=== PATIENT | male | born 1960 | race Caucasian/White ===

== ENCOUNTER 2019-12-19 10:50 | Inpatient (IN) | payer MEDICARE, MEDICAID, SELFPAY ==
[2019-12-19] VITALS (18 sets, daily range): BP systolic 97–125; BP diastolic 58–78; PULSE 84–102; RESP 17–43; TEMP 36.1–36.9; O2SAT 94–100; BMI 24.3
--- NOTE | 2019-12-19 10:52 | ED_ITS ---
Entered by Shawanda Cunningham, acting as scribe for Xavi Pedroza DO HPI - SOB/Dyspnea General: Chief Complaint: Shortness of Breath/Dyspnea Stated Complaint: SHORTNESS OF BREATH Time Seen by Provider: 12/19/19 10:52 Source: patient, family and EMS Mode of arrival: EMS Limitations: no limitations History of Present Illness: HPI Narrative: 59 yo male presents with cough and increased shortness of breath. pt states this started several days ago. pt has had dark stools, nausea, vomiting and abdomen pain. per spouse the pt was Dx with lung cancer 6 months ago. pt is scheduled to see Dr. Dunham on January 08 to started a plan on the cancer. pt has had decreased appetite. pt denies any other symptoms at this time. pt did increased his intake of ibuprofen. MD elicited complaint: shortness of breath and cough Onset (ago): day(s) (yesterday) Context: other (fall 1 month ago) Timing: constant and progressively worsening Severity: moderate Exacerbating factors: coughing Relieving factors: oxygen Associated symptoms: Reports abdominal pain, cough, nausea, vomiting and other (diarrhea, black stools); Deny chest pain, dizziness, extremity pain, fever(s), palpitations, polydipsia, polyuria or syncope Treatment prior to arrival: oxygen Review of Systems Const: Denies: fever, malaise or night sweats Eyes: Denies: change in vision or blurry vision ENMT: Denies: throat pain, oral sores/lesions, dental pain, nasal discharge or nasal congestion Card: Denies: chest pain, palpitations, irregular heart rhythm, edema, syncope or leg pain with exertion GI: Reports: abdominal pain, nausea and vomiting : Denies: flank pain, difficulty urinating, painful urination, urinary frequency, urinary urgency, urinary incontinence or blood in urine Musc: Denies: neck pain, back pain, extremity pain, extremity swelling, joint pain or joint swelling Skin/Breast: Denies: rash, itching or redness Neuro: Denies: headache, numbness in extremities, weakness in extremities, changes in sensation, lack of coordination, difficulty walking, frequent falls, dizziness, vertigo or confusion Psych: Denies: anxiety, depression, loss of interest, visual hallucinations, auditory hallucinations, suicidal ideation or homicidal ideation Endo: Denies: excessive urination, excessive thirst, tired all the time or cold intolerance Chance/Lymph: Denies: easy bruising, easy bleeding, petechiae, enlarged lymph nodes or tender lymph nodes PFSH ED PFSH: Statuses (acute, chronic, etc) shown below reflect problem list status as previously entered and may not be historically accurate Medical History COPD (chronic obstructive pulmonary disease) Lung cancer Family History Grandmother Diabetes Mother Hypertension Lung disease Social History Smoking and tobacco status: current every day smoker cigarettes Packs smoked per day: 1 Years cigarettes smoked: 40 Alcohol intake: current Alcohol intake frequency: 3 or more drinks per day Lives independently: Yes Marital status: Single Highest education level completed: High School Graduate service: Yes Current occupational status: disabled Current gender identity: Male Physical Exam Const: COMMON NORMALS: average body habitus, oriented x3 and alert GENERAL APPEARANCE: cooperative, comfortable, well kempt and well developed NUTRITIONAL APPEARANCE: obese ORIENTATION/CONSCIOUSNESS: Yes awake, Yes oriented to person and Yes oriented to place HENMT: COMMON NORMALS: normocephalic, head/scalp atraumatic, EAC's normal, TM's normal bilaterally, external nose normal, moist oral mucous membranes and oropharynx normal HEAD & SCALP: normocephalic and atraumatic NOSE: external nose normal EXTERNAL AUDITORY CANAL: EAC's normal TYMPANIC MEMBRANE: TM's normal bilaterally MOUTH: oral and palatal mucosa normal, lip normal and tongue normal THROAT: posterior oropharynx normal and tonsils normal Eye: COMMON NORMALS: PERRL, EOMs intact bilaterally, conjunctivae normal and no scleral icterus CONJUNCTIVA: Yes conjunctivae normal PUPIL: Yes PERRL Neck/C-Spine: COMMON NORMALS: full ROM, no lymphadenopathy, supple, no meningeal signs and thyroid normal THYROID: thyroid normal and asymmetrical Lymph: LYMPHATIC: no lymphadenopathy noted Resp: EFFORT & INSPECTION: Yes audible wheezes AUSCULTATION: rhonchi left upper, left lower and right lower and wheezes throughout Cardio: COMMON NORMALS: regular rate and regular rhythm RATE: regular rate RHYTHM: regular rhythm HEART SOUNDS: no murmurs : COMMON NORMALS: Yes no CVA tenderness BLADDER/KIDNEY EXAM: Yes no CVA tenderness Back/Pelvis: COMMON NORMALS: no CVA tenderness LUMBAR SPINE/LOWER BACK: Yes normal to inspection Extremity: COMMON NORMALS: no clubbing, cyanosis or edema, no calf tenderness and no pedal edema Neuro: COMMON NORMALS: oriented x3 SENSORIUM/ORIENTATION: Yes alert, Yes oriented to person and Yes oriented to place MENINGEAL SIGNS: Yes no meningeal signs Psych: APPEARANCE: Yes well kempt Skin: COMMON NORMALS: no rashes or lesions noted and skin turgor normal GENERAL SKIN EXAM: no rashes or lesions noted and turgor normal Course Vital Signs: Vital signs: Vital Signs Temperature 97.3 F L 12/20/19 23:58 Pulse Rate 100 12/21/19 16:45 Respiratory Rate 31 H 12/21/19 14:11 Blood Pressure 145/67 12/21/19 12:00 Pulse Oximetry 98 12/21/19 16:45 MDM - SOB/Dyspnea Lab Data: Labs: Lab Results 12/19/19 12/19/19 12/19/19 Range/Units 09:39 09:39 09:39 WBC 11.9 H (4.0-10.0) 10^3/ uL RBC 3.14 L (4.1-5.3) 10^6/u L Hgb 10.0 L (11.7-16.6) g/dL Hct 29.2 L (42.0-52.0) % MCV 93.0 (80-94) fL MCH 31.8 (28.0-34.0) pg MCHC 34.2 (30.0-36.0) g/dL RDW 10.8 L (12.1-15.1) % Plt Count 564 H (130-400) 10^3/c mm MPV 10.0 (7.4-10.4) fL Neut % (Auto) 76.8 % Lymph % (Auto) 10.3 % [facility] % (Auto) 12.1 % Eos % (Auto) 0.2 % Baso % (Auto) 0.2 % Neut # (Auto) 9.1 H (1.8-7.7) 10^3/u L Lymph # (Auto) 1.2 (0.8-4.8) 10^3/u L [facility] # (Auto) 1.4 H (0.2-0.9) 10^3/u L Eos # (Auto) 0.0 (0.0-0.8) 10^3/u L Baso # (Auto) 0.0 (0.0-0.1) 10^3/u L Nucleated RBC % (a uto) 0 % Nucleated RBCs # 0.0 /100WBC PT (10.5-13.3) SECO NDS INR (0.8-1.2) APTT (23.9-36.7) SECO NDS Sodium 134 L (136-145) mmol/L Potassium 4.2 (3.5-5.1) mmol/L Chloride 80 L (98-107) mmol/L Carbon Dioxide 39 H (22-29) mmol/L Anion Gap 19.2 H (5-19) BUN 30 H (8-23) mg/dL Creatinine 0.7 (0.7-1.2) mg/dL GFR Calculation 115.0 (90-130) mL/min Glucose 133 H (65-115) mg/dL Calcium 11.6 H (8.5-10.5) mg/dL Total Bilirubin 0.3 (0.15-1.2) mg/dL AST 27 (0-40) U/L ALT 14 (0-41) U/L Alkaline Phosphata se 156 H (40-130) IU/L Troponin T Baselin e 21 H (0-15) ng/mL Troponin T 120 Min [place] (0-15) ng/mL Delta Troponin T (0-10) ABS# Total Protein 7.8 (6.6-8.7) g/dL Albumin 4.8 (3.5-5.2) g/dL Globulin 3.0 (1.3-4.6) g/dL Influenza Type A A g (Negative) POC Influenza B Ag (Negative) 12/19/19 12/19/19 12/19/19 Range/Units 09:39 12:20 13:08 WBC (4.0-10.0) 10^3/ uL RBC (4.1-5.3) 10^6/u L Hgb (11.7-16.6) g/dL Hct (42.0-52.0) % MCV (80-94) fL MCH (28.0-34.0) pg MCHC (30.0-36.0) g/dL RDW (12.1-15.1) % Plt Count (130-400) 10^3/c mm MPV (7.4-10.4) fL Neut % (Auto) % Lymph % (Auto) % [facility] % (Auto) % Eos % (Auto) % Baso % (Auto) % Neut # (Auto) (1.8-7.7) 10^3/u L Lymph # (Auto) (0.8-4.8) 10^3/u L [facility] # (Auto) (0.2-0.9) 10^3/u L Eos # (Auto) (0.0-0.8) 10^3/u L Baso # (Auto) (0.0-0.1) 10^3/u L Nucleated RBC % (a uto) % Nucleated RBCs # /100WBC PT 13.60 H (10.5-13.3) SECO NDS INR 1.01 (0.8-1.2) APTT 28.1 (23.9-36.7) SECO NDS Sodium (136-145) mmol/L Potassium (3.5-5.1) mmol/L Chloride (98-107) mmol/L Carbon Dioxide (22-29) mmol/L Anion Gap (5-19) BUN (8-23) mg/dL Creatinine (0.7-1.2) mg/dL GFR Calculation (90-130) mL/min Glucose (65-115) mg/dL Calcium (8.5-10.5) mg/dL Total Bilirubin (0.15-1.2) mg/dL AST (0-40) U/L ALT (0-41) U/L Alkaline Phosphata se (40-130) IU/L Troponin T Baselin e (0-15) ng/mL Troponin T 120 Min [place] 25.81 H (0-15) ng/mL Delta Troponin T 4.81 (0-10) ABS# Total Protein (6.6-8.7) g/dL Albumin (3.5-5.2) g/dL Globulin (1.3-4.6) g/dL Influenza Type A A g Negative (Negative) POC Influenza B Ag Negative (Negative) Imaging Data^: CXR: Radiologist's impression: [address] [address] XRay Report Signed Patient: Reji Mcdaniel #: [id number] : 9Acct#:[id number] Age/Sex: 59 / MADM Date: 12/19/19 Loc: ERRoom/Bed: Attending Dr: Ordering Provider/Ordering MD: Xavi Pedroza DO Date of Service: 12/19/19 Procedure(s): XR chest 1V portable [id number] Accession Number(s): [id number] Report Number: [id number] WS: [id number] PORTABLE CHEST HISTORY: dyspnea/cough COMPARISON: 07/09/2017 and recent PET/CT 05/21/2019. Mild pulmonary hyperexpansion with changes of emphysema. Dense area of opacification in the LEFT upper lobe measures 6 x 4.8 cm. PET/CT from 05/21/2019 described an early neoplasm in this location. There is additional interstitial thickening extending into the superior LEFT lower lobe. RIGHT lung is clear. No pleural effusion or pneumothorax. Cardiac size: Normal. Mediastinum/Aorta: Normal mediastinum. No osseous abnormality seen. XR/XR chest 1V portable [id number] IMPRESSION: 1. Mixed opacification LEFT upper lobe with mild interstitial thickening into the superior LEFT lower lobe. Neoplasm has been described in this location on a prior PET/CT from 05/21/2019. No history of treatment is evident. Favor progression of neoplasm. Superimposed pneumonia not excluded. 2. Chronic emphysema. Dictated By:Farrah De León DO Signed By:Farrah De León DOSigned Date/Time:12/19/19 1147 Discharge Plan Discharge Patient Disposition: Admitted As Inpatient Admit Provider: Vick Owens Clinical Impression: Pneumonia, Lung cancer Condition: Stable Interventions: ED Discharge Assessment Last Done: 12/19/19 15:49 Discharge Date/Time: 12/19/19 17:00 Coding Level of Care Code ED Head Cook for Chg Fwd Exam Problem Focused The documentation recorded by the Octavio espinoza Bridget Annette, accurately reflects the service I personally performed and the decisions made by , Xavi Pedroza DO Dec 19, 2019 10:50
--- NOTE | 2019-12-19 10:54 | XR_ITS ---
WS: [id number] PORTABLE CHEST HISTORY: dyspnea/cough COMPARISON: 07/09/2017 and recent PET/CT 05/21/2019. Mild pulmonary hyperexpansion with changes of emphysema. Dense area of opacification in the LEFT uppe r lobe measures 6 x 4.8 cm. PET/CT from 05/21/2019 described an early neoplasm in this location. There is additional interstitial thickening extending into the superior LEFT lower lobe. RIGHT lung is king ar. No pleural effusion or pneumothorax. Cardiac size: Normal. Mediastinum/Aorta: Normal mediastinum. No osseous abnormality seen. XR/XR chest 1V portable [id number] IMPRESSION: 1. Mixed opacification LEFT upper lobe with mild interstitial thickening into the superior LEFT lower lobe. Neoplasm has been described in this location on a prior PET/CT from 05/21/2019. No history of treatment is evident. Favor progres rita of neoplasm. Superimposed pneumonia not excluded. 2. Chronic emphysema.
--- NOTE | 2019-12-19 10:55 | ECG_ITS ---
Measurements Intervals [place] Rate: 93 P: 85 TX: 185 QRS: 80 QRSD: 146 T: 55 QT: 382 QTc: 475 SINUS RHYTHM RIGHT BUNDLE BRANCH BLOCK [120+ ms QRS DURATION, UPRIGHT V1, 40+ ms S IN I/aVL/V4/V5/V6] Compared to ECG 07/08/2017 00:34:51 Q waves no longer present ST (T wave) deviation still present Myocardial infarct finding still present Electronically Signed On 12-19-2019 20:06:35 PARKING LINE PAINTER by Peter Bruno M.D. [id number]
--- NOTE | 2019-12-19 11:17 | CT_ITS ---
WS: [id number] CTA OF THE CHEST WITH PULMONARY EMBOLISM PROTOCOL TECHNIQUE: High-resolution contrast enhanced CTA of the chest with coronal and sagittal reformatted i mages with pulmonary embolism protocol. MIP images are also reviewed. CLINICAL INFORMATION: dyspnea, lung CA COMPARISON: PET/CT and CT chest DLP: 552.[address] scans at [facility] use at least one of these dose optimization techniques: automat ed exposure control; mA and/or kV adjustment per patient size (includes targeted exams where dose is matched to clinical indication); or iterative reconstruction. FINDINGS: Proximal main pulmonary arteries are normal. Segmental and subsegmental pulmonary arteries are normal . No filling defects to indicate pulmonary embolus. Spiculated left upper lobe pulmonary mass is progressed from the prior examinations consistent with b ronchogenic carcinoma measuring 1.7 x 1.2 CM. Additional parenchymal consolidation along the left fis sure with partial encasement of the left hilum. Surrounding micronodules suspicious for metastatic di sease. Additional contiguous spiculated mass in the left upper lobe measuring 2.1 CM. Enlarged AP window and anterior mediastinal lymph nodes. Enlarged paratracheal lymph nodes. Left leodan r lymphadenopathy. Moderate chronic emphysematous changes. Noncalcified nodule in the right upper lobe measuring 5 mm. Mild thickening of the left adrenal gland. Right adrenal gland is normal. Low-attenuation lesions in the partially evaluated left hepatic lobe suspicious for metastatic disease. Additional poorly visual ized lesions in the central liver and right hepatic lobe most consistent with metastatic disease. Par tially visualized lymphadenopathy in the upper abdomen and rashmi hepatis. Chronic anterior wedging in the mid thoracic spine is unchanged. Notified Xavi Pedroza DO at 12/19/2019 1:[address]/CT angio chest PE protcl [id number] IMPRESSION: 1. No evidence of pulmonary embolus. 2. Progressed left upper lobe bronchogenic carcinoma measuring 1.2 x 1.7 CM. 3. Focal soft tissue thickening with left hilar lymphadenopathy and parenchyma l consolidation along the left upper lobe at the fissure. Some of this may repr esent postobstructive pneumonia. Surrounding satellite nodules most consistent with metastatic disease. 4. Additional contiguous left upper lobe spiculated nodule measuring 2.[address] cephalad to the left fissure consolidation. 5. AP window, anterior mediastinal and hilar lymphadenopathy. 6. Numerous partially visualized metastatic lesions in the liver. 7. Upper abdominal lymphadenopathy partially visualized.
[2019-12-19] MEDS: ipratropium-albuterol 3 mL Neb 6 ML INHALATION (11:29)
[2019-12-19] MEDS: sodium chloride 0.9% 1,000 ML 999 ML IV (11:33)
[2019-12-19 11:52] LABS: Troponin(5th) Baseline 21 ng/mL (0-15)
[2019-12-19 12:10] LABS: Basophils % 0.2 %; Eosinophils % 0.2 %; Hematocrit 29.2 % (42.0-52.0); Lymphocytes # 1.2 10^3/uL (0.8-4.8); Lymphocytes % 10.3 %; Mean Corpuscular HGB Conc 34.2 g/dL (30.0-36.0); Mean Corpuscular Hemoglobin 31.8 pg (28.0-34.0); Monocytes # 1.4 10^3/uL (0.2-0.9); Monocytes % 12.1 %; Neutrophils # 9.1 10^3/uL (1.8-7.7); Neutrophils % 76.8 %; Nucleated Red Blood Cells % 0 %; Platelet Count 564 10^3/cmm (130-400); Red Blood Count 3.14 10^6/uL (4.1-5.3); Red Cell Distribution Width 10.8 % (12.1-15.1); White Blood Count 11.9 10^3/uL (4.0-10.0)
[2019-12-19 12:38] LABS: Alanine Aminotransferase 14 U/L (0-41); Albumin Level 4.8 g/dL (3.5-5.2); Alkaline Phosphatase 156 IU/L (40-130); Anion Gap 19.2 (5-19); Aspartate Amino Transferase 27 U/L (0-40); Blood Urea Nitrogen 30 mg/dL (8-23); Calcium 11.6 mg/dL (8.5-10.5); Carbon Dioxide 39 mmol/L (22-29); Chloride 80 mmol/L (98-107); Glucose 133 mg/dL (65-115); Potassium 4.2 mmol/L (3.5-5.1); Sodium 134 mmol/L (136-145); Total Bilirubin 0.3 mg/dL (0.15-1.2); Total Protein 7.8 g/dL (6.6-8.7)
--- NOTE | 2019-12-19 12:55 | ECG_ITS ---
Measurements Intervals [place] Rate: 96 P: 88 MI: 172 QRS: 102 QRSD: 144 T: 52 QT: 378 QTc: 478 SINUS RHYTHM WITH OCCASIONAL VENTRICULAR PREMATURE COMPLEXES MARKED RIGHT AXIS DEVIATION [QRS AXIS > 100] RIGHT BUNDLE BRANCH BLOCK [120+ ms QRS DURATION, UPRIGHT V1, 40+ ms S IN I/aVL/V4/V5/V6] Compared to ECG 07/08/2017 00:34:51 Ventricular premature complex(es) now present Right-axis deviation now present ST (T wave) deviation no longer present Myocardial infarct finding no longer present Q waves no longer present Electronically Signed On 12-19-2019 20:08:21 PINMAKER by Peter Bruno M.D. [id number]
[2019-12-19] MEDS: iohexol 350 mg/mL 100 mL Btl IV (13:00)
[2019-12-19 13:04] LABS: Influenza A by IFA Negative (Negative); Influenza B by IFA Negative (Negative)
[2019-12-19 13:43] LABS: Troponin 5 2HR 25.81 ng/mL (0-15); Troponin 5 2HR Delta 4.81 ABS# (0-10)
[2019-12-19] MEDS: piperacillin-tazobactam 3.375 GM in sodium chloride 0.9% (plus) 50 ML IV (14:24)
[2019-12-19] MEDS: LORazepam 2 mg/mL INJ 1 mL 1 MG IVP (14:25)
[2019-12-19] MEDS: morphine 4 mg/mL SDV 1 mL 2 MG IVP (14:25)
[2019-12-19 15:01] LABS: INR 1.01 (0.8-1.2); Partial Thromboplastin Time 28.1 SECONDS (23.9-36.7)
[2019-12-19] MEDS: levofloxacin-dextrose 5 % 750 MG/150 ML PREMIX 150 MG IV (15:11)
--- NOTE | 2019-12-19 15:36 | PC.NURSE ---
RN to call back for report
--- NOTE | 2019-12-19 16:05 | PM.HP ---
Providers/Chief Complaint Admitting Physician: Vick Owens Chief Complaint: SHORTNESS OF BREATH History of Present Illness Reji Mcdaniel is a 59 year old male with history of COPD, left upper lobe pulmonary parenchymal nodule seen in April 2019 presented to emergency department due to shortness of breath. On evaluation he is requiring 3 L of oxygen by nasal cannula. He has leukocytosis of 11.9, heart rate in the 90s, with anemia hemoglobin of 10, mild hyponatremia sodium 134, with isolated alkaline phosphatase elevation 156, minimal elevation of troponin 21-22.85. Rapid influenza is negative. CT of the chest was assessed due to concern for possible PE, without PE noted, but with progressive left upper lobe bronchogenic carcinoma measuring 1.2 x 1.7 cm, with focal soft tissue thickening with left hilar lymphadenopathy, parenchymal consolidation along the left upper lobe at the fissure with concern for possible component of postobstructive pneumonia. Surrounding satellite nodules most consistent with metastatic disease. Additional continuous left upper lobe spiculated nodule measuring 2.1 cm cephalad to left fissure consolidation. Also noted numerous partially visualized metastatic lesions in the liver. I am unable to obtain any history from the patient as during my examination he is obtunded having received morphine and Ativan for pain. Per discussion with ER physician who obtained the history, patient would not want to have intubation, however, would consider additional work-up of the malignancy. It appears since April he has not been in follow-up for additional evaluation or treatment. He would be willing to undergo bronchoscopy if this was needed. He was reportedly previously scheduled to follow-up with Dr. Dunham. Review of Systems Narrative: Patient unable to provide review of systems due to obtundation. Medications/Allergies Home Medications Medication Instructions Recorded Confirmed Last Taken Type cholecalciferol (vitamin D3) 2,000 unit PO DAILY 12/19/19 12/19/19 12/19/19 History [Vitamin D3] levofloxacin [Levaquin] 750 mg PO DAILY 12/19/19 12/19/19 12/19/19 History Allergies Allergy/AdvReac Type Severity Reaction Status Date / Time No Known Allergies Allergy Verified 12/19/19 10:59 PFSH Acute PFSH: Statuses (acute, chronic, etc) shown below reflect problem list status as previously entered and may not be historically accurate Medical History COPD (chronic obstructive pulmonary disease) (Acute) Lung cancer (Acute) Family History (Updated 12/19/19 @ 16:16 by Vick Owens MD) Grandmother Diabetes Mother Hypertension Lung disease Social History Smoking and tobacco status: current every day smoker cigarettes Packs smoked per day: 1 Years cigarettes smoked: 40 Alcohol intake: current Alcohol intake frequency: 3 or more drinks per day Lives independently: Yes Marital status: Single Highest education level completed: High School Graduate service: Yes Current occupational status: disabled Current gender identity: Male Supplemental [facility] Information: Unknown surgical history. Previously denied any per prior documentation. Vitals/I&O/Wt Last Vital Signs Temp 98.4 F 12/19/19 10:57 Pulse 84 12/19/19 15:49 Resp 17 12/19/19 15:49 BP 97/58 12/19/19 15:49 Pulse Ox 99 12/19/19 15:49 Weight last 48 hrs Weight 81.193 kg Physical Exam Const: COMMON NORMALS: no apparent distress; negative for alert GENERAL APPEARANCE: limp; not cooperative NUTRITIONAL APPEARANCE: thin ORIENTATION/CONSCIOUSNESS: Yes obtunded HENMT: COMMON NORMALS: moist oral mucous membranes Neck/C-Spine: COMMON NORMALS: no JVD Resp: COMMON NORMALS: normal respiratory effort and clear to auscultation bilaterally AUSCULTATION: wheezes left lower and diminished lung sounds on the left Cardio: COMMON NORMALS: no JVD, regular rhythm, S1 normal heart sound, S2 normal heart sound and no murmurs RHYTHM: regular rhythm HEART SOUNDS: S1 normal and S2 normal GI: COMMON NORMALS: normal to inspection, nondistended, normoactive bowel sounds, soft to palpation and non-tender PALPATION: Yes soft Extremity: COMMON NORMALS: no joint enlargement and no pedal edema Neuro: OTHER: No obvious facial droop Skin: COMMON NORMALS: no rashes or lesions noted NARRATIVE SKIN EXAM: Tattoos GENERAL SKIN EXAM: no rashes or lesions noted Data : 12/19/19 09:39 12/19/19 09:39 Micro: Microbiology 12/19/19 14:12 Blood Culture - Preliminary Blood SPECIMEN COLLECTED 12/19/19 14:17 Blood Culture - Preliminary Blood SPECIMEN COLLECTED A&P Assessment and plan (1) Pneumonia: Complicated pneumonia of left upper lobe with suspected postobstructive component secondary to left upper lobe malignancy. Currently requiring 2 L of oxygen by nasal cannula. Possible sepsis with leukocytosis 11.9, tachycardia in the 90s, sinus. Blood cultures obtained. He received Zosyn and Levaquin in ER. Solu-Medrol. Breathing treatment. Received morphine and Ativan with subsequent obtundation. Currently appears to be protecting his airway, with saturation stable. Blood pressure soft in the 90s systolic after receiving medications. We will request lactic acid. Sputum cultures. Urine bacterial antigens. At this time continue Levaquin, will add vancomycin due to concern for postobstructive pneumonia. Avoid oversedation. For now will request continuous pulse oximetry. It appears he has not had follow-up since April regarding further diagnosis and management of lung cancer. I am told by emergency physician that he was post follow-up with Dr. Dunham who may be able to see him in the hospital. I am also told that he is willing to consider treatment, including bronchoscopy with biopsy. In this case he could be candidate for radiation therapy. If he were to have a bronchoscopy, BAL would also be useful for cultures. Rapid flu was negative. Status: Acute Code(s): J18.9 - Pneumonia, unspecified organism (2) Lung cancer: Progression of left upper lobe nodules first seen in April with appearance of malignancy. Appreciate thoracic surgery assessment regarding obtaining tissue samples for pathology for subsequent consideration of radiation therapy due to concern for component of postobstructive pneumonia. Status: Acute Code(s): C34.90 - Malignant neoplasm of unspecified part of unspecified bronchus or lung Additional A&P Information History of COPD: Possible exacerbation. Unable to obtain history from her at this time. He does have wheezing on exam, somewhat diminished air entry. With shortness of breath and hypoxia on presentation. Received Solu-Medrol in ER. For now will continue. Continue to biotics, breathing treatments. History of smoking Anemia: Hemoglobin 10. Normocytic. Suspect secondary to malignancy with anemia of chronic disease. Thrombocytosis: Suspect possibly secondary to acute phase reaction with progressive malignancy, pneumonia. Isolated alkaline phosphatase elevation: 156. Will check GGT. Troponin abnormality: Minimal without reported chest pain on presentation. Troponin 21-25.81-22.85. Suspected secondary to nonischemic cardiac injury from mismatch in demand and supply with pneumonia, hypoxia. Metabolic alkalosis: Bicarbonate 39. Possible contraction. Not sure how his oral intake has been recently. Received bolus of IV fluids in ER. Monitor oral intake once he is awake. Attestations Medical Necessity Statement*: Admission of over 2 midnights is continued for assessment of management of pneumonia suspected with postobstructive component secondary to progression of left upper lobe malignancy, exacerbation of COPD. Coding Level of Care Code Acute Information Security Systems Instructor for Larissa Anders Diagnoses Pneumonia J18.9 Lung cancer C34.90
[2019-12-19 16:07] LABS: Troponin 5 6HR 22.85 ng/L (0-15); Troponin 5 6HR Delta 1.85 ng/L (0-12)
[2019-12-19] MEDS: sodium chloride 0.9% 500 ML 999 ML IV (17:24)
[2019-12-19] MEDS: vancomycin 1,000 MG in sodium chloride 0.9% 250 ML 250 MG IV (18:33)
[2019-12-19] MEDS: enoxaparin 40 mg/0.4 mL Syringe SUBCUT (18:34)
[2019-12-19] MEDS: D5-NS 0.45% + KCL 20 mEq 20 MEQ/1,000 ML BAG 150 MEQ IV (18:35)
--- NOTE | 2019-12-19 19:13 | PC.NURSE ---
Pt to ICU from [facility] at [id number]. Report from Jessie CID. Pt minimally responsive. Unable to speak. Withdraws from pain. Pt with Marm[place]jo catheter in place.
[2019-12-19 19:27] LABS: Gamma Glutamyl Transferase 91 U/L (61-)
[2019-12-19] MEDS: budesonide 0.5 mg/2 mL Neb INHALATION (20:27)
[2019-12-19] MEDS: ipratropium-albuterol 3 mL Neb INHALATION (20:28)
--- NOTE | 2019-12-19 20:30 | PC.NURSE ---
Patient requesting bi-pap be removed. Bi-pap off with oxygen at 3L per NC applied as at home. Patient getting up to side of bed. Wanting television on;however, patient sleeping. Will monitor.
--- NOTE | 2019-12-19 21:53 | PC.NURSE ---
After 1900, this nurse inadvertently documented under another nurse's name.
--- NOTE | 2019-12-19 22:00 | PC.NURSE ---
Patient disoriented to time at times. Re-oriented patient to time. Voices understanding. Well I need to go back to bed then. Will monitor.
--- NOTE | 2019-12-19 23:13 | PC.NURSE ---
Addendum entered by Gela Bermeo RN 12/19/19 23:17: IV restarted by Helder Hull RN. Original Note: IV to left AC infiltrated. Discontinued by Helder Hull RN, with catheter intact. Dressing applied. IV started to right wrist with 20 gauge IV x1 attempt using aseptic technique. Secured with belgica guard and coban. Tolerated well.
[2019-12-20] VITALS (43 sets, daily range): BP systolic 98–155; BP diastolic 62–94; PULSE 83–119; RESP 14–36; TEMP 36.3–37.1; O2SAT 91–100
--- NOTE | 2019-12-20 00:15 | PC.NURSE ---
Patient given Sprite before being placed on bipap;however, new order placed to be NPO. Sprite taken away at this time. Will monitor.
--- NOTE | 2019-12-20 00:52 | PC.NURSE ---
Patient very short of breath even while speaking. Oxygen saturation 98% on 3L/NC. Patient agreed to be placed back on bipap. Bipap applied per RT. Will monitor.
[2019-12-20] MEDS: vancomycin 1,000 MG in sodium chloride 0.9% 250 ML 250 MG IV (01:27)
[2019-12-20] MEDS: D5-NS 0.45% + KCL 20 mEq 20 MEQ/1,000 ML BAG 150 MEQ IV ×4 (01:38→22:49)
[2019-12-20] MEDS: ipratropium-albuterol 3 mL Neb INHALATION ×4 (02:26→20:12)
--- NOTE | 2019-12-20 03:27 | PC.NURSE ---
Patient took bipap off. Put my oxygen back on please at 4L. Oxygen on at 4L via NC. Patient requesting coffee. Explained to patient that he was to have nothing by mouth. Well they gave me water yesterday. This nurse explained to patient that the physician had ordered him to have nothing by mouth around midnight. Voices understanding.
--- NOTE | 2019-12-20 04:14 | PC.NURSE ---
Patient tossing and turning at times. Continues to ask for something to drink. This nurse explained to patient, once again, the need to remain NPO as ordered by physician. Oral swab given with patient swabbing mouth and tongue. Back to sleep. Respirations shallow and fast. Refusing to wear bipap at this time. Will monitor.
[2019-12-20 05:12] LABS: Basophils % 0.1 %; Hematocrit 23.1 % (42.0-52.0); Hemoglobin 7.7 g/dL (11.7-16.6); Lymphocytes # 0.4 10^3/uL (0.8-4.8); Lymphocytes % 3.4 %; Mean Corpuscular HGB Conc 33.3 g/dL (30.0-36.0); Mean Corpuscular Hemoglobin 32.1 pg (28.0-34.0); Mean Corpuscular Volume 96.3 fL (80-94); Mean Platelet Volume 9.5 fL (7.4-10.4); Monocytes % 7.9 %; Neutrophils # 10.9 10^3/uL (1.8-7.7); Neutrophils % 88.1 %; Nucleated Red Blood Cells % 0 %; Platelet Count 461 10^3/cmm (130-400); Red Cell Distribution Width 10.8 % (12.1-15.1); White Blood Count 12.3 10^3/uL (4.0-10.0)
[2019-12-20 05:55] LABS: Alanine Aminotransferase 11 U/L (0-41); Albumin Level 3.7 g/dL (3.5-5.2); Alkaline Phosphatase 107 IU/L (40-130); Anion Gap 12.5 (5-19); Aspartate Amino Transferase 19 U/L (0-40); Blood Urea Nitrogen 17 mg/dL (8-23); Calcium 9.5 mg/dL (8.5-10.5); Carbon Dioxide 39 mmol/L (22-29); Chloride 90 mmol/L (98-107); Globulin 2.9 g/dL (1.3-4.6); Glomerular Filtration Rate 169.6 mL/min (90-130); Glucose 224 mg/dL (65-115); Magnesium 1.9 mg/dL (1.7-2.3); Potassium 3.5 mmol/L (3.5-5.1); Sodium 138 mmol/L (136-145); Total Bilirubin 0.2 mg/dL (0.15-1.2); Total Protein 6.6 g/dL (6.6-8.7)
[2019-12-20] MEDS: morphine 4 mg/mL SDV 1 mL 2 MG IVP ×2 (06:01→09:58)
--- NOTE | 2019-12-20 06:25 | PC.NURSE ---
Oral care performed via swabs. Tolerated well. Pain decreasing to 6/10. Will monitor.
--- NOTE | 2019-12-20 08:01 | PC.NURSE ---
pulled bipap off. n.c. on at 5l.
[2019-12-20] MEDS: budesonide 0.5 mg/2 mL Neb INHALATION (08:43)
--- NOTE | 2019-12-20 09:23 | ECG_ITS ---
Measurements Intervals [place] Rate: 118 P: 70 ME: 139 QRS: 99 QRSD: 138 T: 56 QT: 353 QTc: 496 SINUS TACHYCARDIA RIGHT BUNDLE BRANCH BLOCK [120+ ms QRS DURATION, UPRIGHT V1, 40+ ms S IN I/aVL/V4/V5/V6] ST ELEVATION, CONSIDER INFERIOR INJURY [MARKED ST ELEVATION W/O NORMALLY INFLECTED T WAVE IN II/aVF] ACUTE MT Compared to ECG 12/19/2019 13:28:22 ST (T wave) deviation now present Myocardial infarct finding now present Sinus rhythm no longer present Electronically Signed On 12-20-2019 20:07:49 PAPER COUNTER by Shelley Goff M.D. [id number]
[2019-12-20] MEDS: magnesium sulfate premix 2 GM/50 ML PIGGYBACK IV (09:42)
[2019-12-20] MEDS: pantoprazole DR 40 mg Tablet PO (09:43)
[2019-12-20] MEDS: montelukast sodium 10 mg Tablet PO (09:43)
[2019-12-20] MEDS: atorvastatin 40 mg Tablet 20 MG PO (09:43)
[2019-12-20] MEDS: guaiFENesin 600 mg Tablet 1200 MG PO (09:44)
[2019-12-20] MEDS: roflumilast 500 mcg Tablet PO (09:45)
[2019-12-20] MEDS: tamsulosin 0.4 mg Capsule PO (09:45)
--- NOTE | 2019-12-20 10:00 | PM.CONSULT ---
Providers/Reason For Consult Consulting Physican/Specialty*: Dr. Dunham, cardiothoracic surgery Reason for Consult*: Left upper lobe lung mass with mediastinal adenopathy, pulmonary satellite lesions, and hepatic lesions Requesting Physcian: Dr. Owens Attending Physician: Vick Owens History of Present Illness History of Present Illness Reji Mcdaniel is a 59 year old male who is ill-appearing with COPD admitted yesterday after presentation of increasing dyspnea. Apparently he has a known left upper lobe lesion for which he had previously been scheduled to follow-up with me and whom I apparently saw about 2 months ago, though I cannot independently recall the appointment. CT scan was performed to rule out pulmonary embolism which was negative. However he is noted to have a concerning lesion. CT scan obtained yesterday was compared to a prior study of April 25, 2019 as was the PET scan from May 21, 2019. Scan describes a progressed left upper lobe lesion measured 1.2 x 1.7 cm and presumably bronchogenic carcinoma, though it is noted he does not have a tissue diagnosis. There is focal soft tissue thickening in the left hilar region with lymphadenopathy and consolidation. He has surrounding satellite lesions concerning for metastatic disease in the left upper lobe as well. He has AP window, anterior mediastinal, and hilar adenopathy. There is an additional contiguous left upper lobe spiculated nodule measuring 2.1 cm just cephalad to the left fissure consolidation. He has numerous partially visualized metastatic lesions of the liver. Dr. Owens and I have spoken on the phone, and I do concur that bronchoscopy would be beneficial. I also think it would be advantageous to obtain mediastinoscopy and hopefully biopsy this adenopathy in the region. He is anemic currently and after hydration his hemoglobin is in the 7 range. I think he should be transfused 2 units of blood prior to surgery for which we have scheduled for bronchoscopy/mediastinoscopy this afternoon. He is currently being treated for postobstructive pneumonia with high suspicion for advanced malignancy. He has now been placed on BiPAP and appears much more comfortable with saturations in the mid to upper 90s. Morphine is also helped ease his air hunger. Unfortunately, I think he will require postoperative ventilatory management. I have discussed this very frankly with him. He is agreeable to short-term mechanical ventilation. Review of Systems Const: Reports: change in appetite, change in weight and fatigue Eyes: Denies: change in vision or blurry vision ENMT: Denies: painful swallowing or hoarseness Card: Denies: chest pain, palpitations, irregular heart rhythm or edema Resp: Reports: shortness of breath and productive cough GI: Denies: abdominal pain, nausea, vomiting, difficulty swallowing, heartburn/indigestion or change in bowel habits : Denies: difficulty urinating, painful urination, urinary frequency, urinary urgency or urinary hesitancy Musc: Denies: extremity pain or extremity swelling Skin/Breast: Denies: rash Neuro: Denies: headache, numbness in extremities, weakness in extremities or changes in sensation Psych: Denies: anxiety, depression or change in appetite Endo: Denies: excessive urination, excessive thirst or cold intolerance Chance/Lymph: Denies: easy bruising, easy bleeding, petechiae or enlarged lymph nodes Meds/Allergies Home Medications and Allergies Home Medications Medication Instructions Recorded Confirmed Type albuterol sulfate 2.5 mg INHALATION Q4H PRN 11/07/19 12/19/19 History albuterol sulfate 90 mcg/actuation 2 puff INHALATION Q3H PRN gm 11/07/19 12/19/19 History aerosol inhaler arformoterol 15 mcg/2 mL solution 2 ml INHALATION BID 11/07/19 12/19/19 History for nebulization atenolol 50 mg-chlorthalidone 25 1 tab PO BID 11/07/19 12/19/19 History mg tablet budesonide 0.5 mg/2 mL suspension 0.5 mg INHALATION BID 11/07/19 12/19/19 History for nebulization ipratropium bromide 0.02 % 2.5 ml INHALATION Q6H 11/07/19 12/19/19 History solution for inhalation levocetirizine 5 mg tablet 5 mg PO DAILY 11/07/19 12/19/19 History metformin 500 mg 24 hr 1,000 mg PO DAILY tab 11/07/19 12/19/19 History tablet,extended release montelukast 10 mg tablet 10 mg PO DAILY 11/07/19 12/19/19 History roflumilast 500 mcg tablet 500 mcg PO DAILY 11/07/19 12/19/19 History simvastatin 40 mg tablet 40 mg PO DAILY 11/07/19 12/19/19 History tamsulosin 0.4 mg capsule 0.4 mg PO DAILY 11/07/19 12/19/19 History cholecalciferol (vitamin D3) 2,000 unit PO DAILY 12/19/19 12/19/19 History [Vitamin D3] levofloxacin [Levaquin] 750 mg PO DAILY 12/19/19 12/19/19 History Allergies Allergy/AdvReac Type Severity Reaction Status Date / Time No Known Allergies Allergy Verified 12/19/19 10:59 Current Medications Current Medications Generic Name Dose Route Start Last Admin Trade Name Freq PRN Reason Stop Dose Admin Albuterol/Ipratropium 3 ml 12/19/19 21:00 12/20/19 08:43 Duoneb INHALATION 3 ml Q6H.RESPIRATORY EHSAN Administration Atorvastatin Calcium 20 mg 12/20/19 09:00 12/20/19 09:43 Lipitor PO 20 mg DAILY EHSAN Administration Budesonide 0.5 mg 12/19/19 20:00 12/20/19 08:43 Pulmicort INHALATION 0.5 mg BID ESHAN Administration Enoxaparin Sodium 40 mg 12/19/19 17:15 12/19/19 18:34 Lovenox SUBCUT 40 mg Q24H EHSAN Administration Guaifenesin 1,200 mg 12/19/19 18:00 12/20/19 09:44 Mucinex PO 1,200 mg BID EHSAN Administration Potassium Chloride/Dextrose/Sod Cl 20 meq in 1,000 mls @ 150 mls/hr 12/19/19 17:15 12/20/19 07:55 D5-Ns 0.45% + Kcl 20 Meq IV 150 mls/hr .Q6H40M EHSAN Administration Vancomycin HCl 1,000 mg/ 250 mls @ 250 mls/hr 12/19/19 17:45 12/20/19 05:03 Sodium Chloride IV Infused Q8H EHSAN Infusion Protocol Magnesium Sulfate 2 gm in 50 mls @ 50 mls/hr 12/20/19 09:23 12/20/19 09:42 Magnesium Sulfate Premix IV 12/20/19 10:22 50 mls/hr ONCE ONE Administration Methylprednisolone Sodium Succinate 60 mg 12/19/19 17:15 12/20/19 05:02 Solu-Medrol IVP 60 mg Q6H EHSAN Administration Montelukast Sodium 10 mg 12/20/19 09:00 12/20/19 09:43 Singulair PO 10 mg DAILY EHSAN Administration Morphine Sulfate 2 mg 12/19/19 17:15 12/20/19 09:58 Morphine IVP 2 mg Q4H PRN Administration SEVERE PAIN Pantoprazole Sodium 40 mg 12/19/19 17:15 12/20/19 09:43 Protonix PO 40 mg DAILY EHSAN Administration Roflumilast 500 mcg 12/20/19 09:00 12/20/19 09:45 Daliresp PO 500 mcg DAILY EHSAN Administration Tamsulosin HCl 0.4 mg 12/20/19 09:00 12/20/19 09:45 Flomax PO 0.4 mg DAILY EHSAN Administration PFSH Acute PFSH: Statuses (acute, chronic, etc) shown below reflect problem list status as previously entered and may not be historically accurate Medical History COPD (chronic obstructive pulmonary disease) Lung cancer Family History Grandmother Diabetes Mother Hypertension Lung disease Social History Smoking and tobacco status: current every day smoker cigarettes Packs smoked per day: 1 Years cigarettes smoked: 40 Alcohol intake: current Alcohol intake frequency: 3 or more drinks per day Lives independently: Yes Marital status: Single Highest education level completed: High School Graduate service: Yes Current occupational status: disabled Current gender identity: Male Vitals/I&O/Wt Last Vital Signs Temp 98.3 F 12/20/19 04:00 Pulse 117 H 12/20/19 08:44 Resp 22 H 12/20/19 08:44 BP 140/90 12/20/19 08:00 Pulse Ox 98 12/20/19 08:44 12/19/19 12/20/19 12/20/19 22:59 06:59 14:59 Intake Total 250 / 250 1280 / 1530 942.5 / 942.5 Output Total 1100 / 1100 Balance 250 / 250 180 / 430 942.5 / 942.5 Weight last 48 hrs Weight 179 lb Physical Exam Const: COMMON NORMALS: oriented x3 GENERAL APPEARANCE: anxious and ill appearing NUTRITIONAL APPEARANCE: underweight ORIENTATION/CONSCIOUSNESS: Yes oriented to person, Yes oriented to place and Yes oriented to time Chest: CHEST: Yes symmetrical chest wall rise Resp: COMMON NORMALS: negative for normal respiratory effort and negative for clear to auscultation bilaterally EFFORT & INSPECTION: No able to speak in complete sentences, Yes tachypneic and Yes uses accessory muscles AUSCULTATION: not clear to auscultation bilaterally and wheezes expiratory wheezes, inspiratory wheezes, lower bilaterally and posterior Cardio: COMMON NORMALS: regular rhythm and S1 normal heart sound RATE: tachycardic RHYTHM: regular rhythm HEART SOUNDS: S1 normal Neuro: COMMON NORMALS: oriented x3, no focal motor deficits and no sensory deficits noted SENSORIUM/ORIENTATION: Yes oriented to person, Yes oriented to place and Yes oriented to time Urinary Catheter Management^: [place]: Cath Placed During This Visit: yes Urethral Indwelling: Yes Reason for Continuing Indwelling Catheter: Accurate Measurement of Urinary Output in Critically Ill Patients Urinary Catheter Date of Insertion: 12/19/19 Urinary Catheter Time of Insertion: 17:30 Data Micro: Micro: Microbiology 12/19/19 14:12 Blood Culture - Pr eliminary Blood SPECIMEN [facility] 12/19/19 14:17 Blood Culture - Pr eliminary Blood SPECIMEN [facility] A&P Assessment and plan (1) Pneumonia: 59-year-old ill-appearing gentleman with postobstructive pneumonia concerns for advanced malignancy. He does understand that tissue diagnosis has not been obtained as of yet. I recommended bronchoscopy mediastinoscopy this afternoon. He also should receive packed RBC transfusion due to market anemia. We will tentatively plan for bronchoscopy and mediastinoscopy this afternoon. Risk and rationale were carefully and frankly discussed. Appropriate consents will be provided for review and signature. Postop need for continued mechanical ventilation very frankly discussed. He is agreeable. 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
[2019-12-20] MEDS: nicotine 21 mg Patch 1 PATCH TRANSDERMA (10:42)
[2019-12-20] MEDS: vancomycin 1,000 MG in sodium chloride 0.9% 250 ML 166 MG IV (11:35)
--- NOTE | 2019-12-20 11:42 | PC.NURSE ---
back to bipap 40%fio2. resting on left side. o2 sat down to 75% n.c. increased to 6l. brought sat up to 85% only.
--- NOTE | 2019-12-20 11:49 | PC.CHAP ---
Pastoral Care Encounter/Spiritual Assessment Type of Contact [] Declined event planning intern visit [] Patient/Family/Request visit [] Outpatient visit [] Follow-up visit [] Physician referral [] Code/Alert [x] Routine visit [] Staff referral [] Actively dying [] Patient sleeping [] Family support [] [] Out of room [] Palliative care [] [] Receiving care in room [] Pre-surgical visit [] Trauma [] Long length of stay [x] ICU visit [] Other: Relational/Emotional Strength [] Patient feels connected with others/family/visitors/staff [] Distress [] Loneliness/isolation [] Abandonment Spirituality of Patient [] Person of Sherlyn [] Attends Latter Day of their [place] [] Believes in Prayer [] Reads Bible or Episcopalian materials [] There are Spiritual issues to be addressed Flight Dynamicist Interventions [x] Prayer [] Active listening [] Non-anxious presence [] Spiritual/emotional support [] Crisis/trauma care [] Spiritual counseling [] Bereavement support [] Provided bereavement packet [] Provided Bible/devotional materials [] Provided toy/stuffed animal, coloring book to patient or family member [] Provided Communion [] Anointing/Rossiter [] Salvation [] Completed spiritual assessment [] Other: Impact on Illness or Injury [] Angry [] Fearful [] Anxious [] Often cries [] Exhaustion [] Unable to work [] Unable to attend restorationist [] Unable to walk/stand [] Unable to read [] Unable to drive [] Unable to eat/drink [] Unable to sleep [] Unable to be with family [] Patient intubated [] Other: Summary breathing heavy. Time spent with patient 5min
--- NOTE | 2019-12-20 12:27 | PC.NURSE ---
Assisting primary nurse Tory with patient care. Call placed to Dr. Salcido to notify him of patient's multiple IV medications and blood with poor peripheal IV access. Instructions for PICC placement.
--- NOTE | 2019-12-20 12:40 | PC.NURSE ---
attempted x2 to start iv for prbcs, w/o success. vein rupture. consent for picc done. vanc on hold and prbcs running vi 20 ga. in right wrist/forearm area.
--- NOTE | 2019-12-20 13:23 | P.ANESASSM_ITS ---
Pre-Anesthetic Assessment Pre-Anesthetic Assessment: Height/Weight: Height 1.83 m Weight 81.193 kg Temp Pulse Resp BP Pulse Ox 97.6 F 104 H 24 H 121/84 100 12/20/19 12:48 12/20/19 13:06 12/20/19 13:03 12/20/19 13:03 12/20/19 13:06 Preop Diagnosis: ALYCIA lung mass Proposed Procedure: Operation Date: 12/20/19 16:00 Proposed Procedures p Bronchoscopy(Not Applicable) - Se Dunham MD s Mediastinoscopy(Not Applicable) - Se Dunham MD Was Beta Jeanne taken within 24 hours: Yes Last Intake: 23:59 Social: Social History: Tobacco Packs per day: 1 Pack years: 40 Exam: Pre-Anes Outpt Exam: alert and oriented x 3 Airway: Dentition: Loose Additional comments: poor Pulmonary: Pulmonary: COPD Comments: ALYCIA mass CV/HEM: CV/HEM: HTN Metabolic: Metabolic: DM Musc/skel: Musc/skel: Lower Back Pain Anesthetic Plan: ASA status: 4E Meds/Allergies Current Medications: Current Medications Generic Name Dose Route Start Last Admin Trade Name Freq PRN Reason Stop Dose Admin Albuterol/Ipratrop ium 3 ml 12/19/19 21:00 12/20/19 08:43 Duoneb INHALATION 3 ml Q6H.RESPIRATORY S CH Administration Atorvastatin Calci um 20 mg 12/20/19 09:00 12/20/19 09:43 Lipitor PO 20 mg DAILY EHSAN Administration Budesonide 0.5 mg 12/19/19 20:00 12/20/19 08:43 Pulmicort INHALATION 0.5 mg BID EHSAN Administration Enoxaparin Sodium 40 mg 12/19/19 17:15 12/19/19 18:34 Lovenox SUBCUT 40 mg Q24H EHSAN Administration Guaifenesin 1,200 mg 12/19/19 18:00 12/20/19 09:44 Mucinex PO 1,200 mg BID EHSAN Administration Potassium Chloride /Dextrose/Sod Cl 20 meq in 1,000 m ls @ 150 mls/hr 12/19/19 17:15 12/20/19 07:55 D5-Ns 0.45% + Tristan l 20 Meq IV 150 mls/hr .Q6H40M EHSAN Administration Vancomycin HCl 1,0 00 mg/ 250 mls @ 250 mls /hr 12/19/19 17:45 12/20/19 11:35 Sodium Chloride IV 166 mls/hr Q8H EHSAN Administration Protocol Methylprednisolone Sodium Succinate 60 mg 12/19/19 17:15 12/20/19 11:34 Solu-Medrol IVP 60 mg Q6H EHSAN Administration Montelukast Sodium 10 mg 12/20/19 09:00 12/20/19 09:43 Singulair PO 10 mg DAILY EHSAN Administration Morphine Sulfate 2 mg 12/19/19 17:15 12/20/19 09:58 Morphine IVP 2 mg Q4H PRN Administration SEVERE PAIN Nicotine 1 patch 12/20/19 10:30 12/20/19 10:42 Nicoderm 21 Mg P atch TRANSDERMA 1 patch DAILY EHSAN Administration Pantoprazole Sodiu m 40 mg 12/19/19 17:15 12/20/19 09:43 Protonix PO 40 mg DAILY EHSAN Administration Roflumilast 500 mcg 12/20/19 09:00 12/20/19 09:45 Daliresp PO 500 mcg DAILY EHSAN Administration Tamsulosin HCl 0.4 mg 12/20/19 09:00 12/20/19 09:45 Flomax PO 0.4 mg DAILY EHSAN Administration PFSH Anesthesia PFSH: Medical History COPD (chronic obstructive pulmonary disease) Lung cancer Family History Grandmother Diabetes Mother Hypertension Lung disease Social History Smoking and tobacco status: current every day smoker cigarettes Packs smoked per day: 1 Years cigarettes smoked: 40 Alcohol intake: current Alcohol intake frequency: 3 or more drinks per day Lives independently: Yes Marital status: Single Highest education level completed: High School Graduate service: Yes Current occupational status: disabled Current gender identity: Male Data Anesthesia CBC & Chem 7: 12/20/19 04:35 12/20/19 04:35 Other Labs: Laboratory Results - last 48 hr 12/19/19 12/19/19 12/19/19 09:39 09:39 09:39 WBC 11.9 H RBC 3.14 L Hgb 10.0 L Hct 29.2 L MCV 93.0 MCH 31.8 MCHC 34.2 RDW 10.8 L Plt Count 564 H MPV 10.0 Neut % (Auto) 76.8 Lymph % (Auto) 10.3 [place] % (Auto) 12.1 Eos % (Auto) 0.2 Baso % (Auto) 0.2 Neut # (Auto) 9.1 H Lymph # (Auto) 1.2 [place] # (Auto) 1.4 H Eos # (Auto) 0.0 Baso # (Auto) 0.0 Nucleated RBC % (auto) 0 Nucleated RBCs # 0.0 PT INR APTT Sodium 134 L Potassium 4.2 Chloride 80 L Carbon Dioxide 39 H Anion Gap 19.2 H BUN 30 H Creatinine 0.7 GFR Calculation 115.0 Glucose 133 H Calcium 11.6 H Magnesium Total Bilirubin 0.3 GGT AST 27 ALT 14 Alkaline Phosphatase 156 H Troponin I 6 Hour Troponin I Hi Sens Del Troponin T Baseline 21 H Troponin T 120 Minute Delta Troponin T Total Protein 7.8 Albumin 4.8 Globulin 3.0 Influenza Type A Ag POC Influenza B Ag Blood Type Antibody Screen Crossmatch 12/19/19 12/19/19 12/19/19 09:39 12:20 13:08 WBC RBC Hgb Hct MCV MCH MCHC RDW Plt Count MPV Neut % (Auto) Lymph % (Auto) [place] % (Auto) Eos % (Auto) Baso % (Auto) Neut # (Auto) Lymph # (Auto) [place] # (Auto) Eos # (Auto) Baso # (Auto) Nucleated RBC % (auto) Nucleated RBCs # PT 13.60 H INR 1.01 APTT 28.1 Sodium Potassium Chloride Carbon Dioxide Anion Gap BUN Creatinine GFR Calculation Glucose Calcium Magnesium Total Bilirubin GGT AST ALT Alkaline Phosphatase Troponin I 6 Hour Troponin I Hi Sens Del Troponin T Baseline Troponin T 120 Minute 25.81 H Delta Troponin T 4.81 Total Protein Albumin Globulin Influenza Type A Ag Negative POC Influenza B Ag Negative Blood Type Antibody Screen Crossmatch 12/19/19 12/19/19 12/20/19 15:38 15:38 04:35 WBC RBC Hgb Hct MCV MCH MCHC RDW Plt Count MPV Neut % (Auto) Lymph % (Auto) [place] % (Auto) Eos % (Auto) Baso % (Auto) Neut # (Auto) Lymph # (Auto) [place] # (Auto) Eos # (Auto) Baso # (Auto) Nucleated RBC % (auto) Nucleated RBCs # PT INR APTT Sodium 138 Potassium 3.5 Chloride 90 L Carbon Dioxide 39 H Anion Gap 12.5 BUN 17 Creatinine 0.5 L GFR Calculation 169.6 H Glucose 224 H Calcium 9.5 Magnesium 1.9 Total Bilirubin 0.2 GGT 91 AST 19 ALT 11 Alkaline Phosphatase 107 Troponin I 6 Hour 22.85 H Troponin I Hi Sens Del 1.85 Troponin T Baseline Troponin T 120 Minute Delta Troponin T Total Protein 6.6 Albumin 3.7 Globulin 2.9 Influenza Type A Ag POC Influenza B Ag Blood Type Antibody Screen Crossmatch 12/20/19 12/20/19 04:35 10:22 WBC 12.3 H RBC 2.40 L Hgb 7.7 L Hct 23.1 L MCV 96.3 H MCH 32.1 MCHC 33.3 RDW 10.8 L Plt Count 461 H MPV 9.5 Neut % (Auto) 88.1 Lymph % (Auto) 3.4 [place] % (Auto) 7.9 Eos % (Auto) 0.0 Baso % (Auto) 0.1 Neut # (Auto) 10.9 H Lymph # (Auto) 0.4 L [place] # (Auto) 1.0 H Eos # (Auto) 0.0 Baso # (Auto) 0.0 Nucleated RBC % (auto) 0 Nucleated RBCs # 0.0 PT INR APTT Sodium Potassium Chloride Carbon Dioxide Anion Gap BUN Creatinine GFR Calculation Glucose Calcium Magnesium Total Bilirubin GGT AST ALT Alkaline Phosphatase Troponin I 6 Hour Troponin I Hi Sens Del Troponin T Baseline Troponin T 120 Minute Delta Troponin T Total Protein Albumin Globulin Influenza Type A Ag POC Influenza B Ag Blood Type A Positive Antibody Screen Negative Crossmatch See Detail Micro: Microbiology 12/19/19 14:12 Blood Culture - Preliminary Blood SPECIMEN COLLECTED 12/19/19 14:17 Blood Culture - Preliminary Blood SPECIMEN COLLECTED Cardiac Studies: No Data to Display
--- NOTE | 2019-12-20 14:03 | PC.NURSE ---
Joseph here for picc line
--- NOTE | 2019-12-20 14:33 | XR_ITS ---
WS: [id number] CHEST XRAY TECHNIQUE: Portable chest. CLINICAL INFORMATION: picc line placement COMPARISON: None. FINDINGS: Right PICC line with tip in the proximal SVC. Heart: Normal cardiac silhouette. Lungs: Patchy infiltrate within the left upper lobe is similar in appearance to December 19, 2019. Bones: Normal visualized bony structures. XR/XR chest 1V portable [id number] IMPRESSION: 1. Right PICC line tip in the proximal SVC. No pneumothorax. 2. Patchy infiltrate in the left upper lobe is unchanged.
[2019-12-20] MEDS: sodium chloride 0.9% 100 ML (15:19)
[2019-12-20] MEDS: levofloxacin-dextrose 5 % 750 MG/150 ML PREMIX 150 MG IV (15:20)
--- NOTE | 2019-12-20 15:23 | PC.NURSE ---
PICC RIGHT arm in and ready for use. Primary nurse notified.
--- NOTE | 2019-12-20 16:05 | PC.NURSE ---
preparing pt. for bronk in or with mediastinoscopy
--- NOTE | 2019-12-20 17:02 | PC.NURSE ---
to светлана hoover.,ect
[2019-12-20] MEDS: EPINEPHrine 1 mg/mL INJ XX (17:20)
[2019-12-20] MEDS: vancomycin 1,000 MG SDV 1000 MG XX (17:45)
--- NOTE | 2019-12-20 18:07 | SUR.OPER ---
1750 - Pt's family - Vicki - updated on surgery progress and pt status via her cell phone.
--- NOTE | 2019-12-20 18:41 | PM.OP ---
Operative Report Date of procedure: December 20, 2019 Pre-op Diagnosis: ALYCIA lung mass Post-op diagnosis: same Procedure Done: 1. Flexible diagnostic bronchoscopy with biopsy 2. Medius anoscopy with biopsy Specimens removed/disposition: Endobronchial biopsy left upper lobe Precarinal lymph node biopsy Pathology: Endobronchial biopsy left upper lobe Mediastinal biopsy precarinal lymph node Surgeon: Se Dunham Anesthesia: General Complications: None: Post procedure chest x-ray pending Condition: critical Disposition: ICU Brief History: 59-year-old gentleman with left upper lobe lung lesions and satellite lesions as well as mediastinal adenopathy and apparent liver and possible metastatic brain lesions. Admitted with respiratory difficulties currently on BiPAP. Concerns for postobstructive pneumonia have been entertained. I was requested to perform bronchoscopy. In addition, given the adenopathy, I did recommend mediastinoscopy. I did review his PET scan performed from May of last year which showed mostly increased activity in the hilum but nothing really in the precarinal region though there is some prominent adenopathy there, therefore I recommended attempted biopsy as well. Appropriate consents have been reviewed and signed. Mr. Mcdaniel is aware that he probably will be on the ventilator postoperatively at least for 24 hours due to his compromised pulmonary status. He is in agreement. Procedure: Bronchoscopy: Mr. Martínez underwent general endotracheal anesthesia with an 8.0 endotracheal tube. With adequate anesthesia, flexible bronchoscope was inserted through the endotracheal tube. In a methodical fashion the trachea, debbie, right main bronchus and associated lobar bronchi were inspected. In a similar fashion the left side was inspected. Secretions were cleared as needed to allow for adequate inspection. Secretions were collected from the left side and sent for culture by immunosuppressive panel. Secretions were moderately thick and white. Findings: Main debbie and secondary debbie were sharp. Branching anatomy was normal. There was no evidence for extrinsic compression or submucosal infiltration. The right side was completely unremarkable except for a small volume of secretions which were easily aspirated clear. On the left side, the left lower lobe was unremarkable as was the bronchus intermedius. There was some effacement and suggestion of possible endobronchial mass toward the apical posterior segment of the left upper lobe. This was a rather difficult angle though I did attempt endobronchial biopsies several times in this region. Modest bleeding was controlled with a solution of saline epinephrine and hemostasis was confirmed post biopsy. Once completed, the scope was withdrawn under direct visualization confirming cleared secretions and no substantial bleeding. Endoscopic photos were taken as required to document pathology. Mediastinoscopy: PROCEDURE: After positioning over protective padding, the patient was sterilely prepped and draped. A transverse incision was made above the sternal notch and carried down through the platysma. Cautery was utilized and large bridging veins were secured with clips and ligature prior to division. The pretracheal space was reached and enhanced the surgeon's finger. Mediastinoscope was inserted by direct vision and carefully advanced along the anterior plane of the trachea. Utilizing blunt dissection with suction, modest lymph nodes in the precarinal area were dissected free from a very generous amount of adipose tissue. Laterally, encroachment from hyperinflated emphysematous lung tissue also created technical challenge. Aspiration was then carefully performed followed by biopsy under direct vision. Appropriate cultures were taken on the operative field. These small specimens specimens were sent to pathology for permanent analysis. After adequate biopsy and tissue sampling, the patient was placed in reverse Trendelenburg position. Hemostasis was confirmed with the use of cautery, packing, and Surgicel. After confirmation of hemostasis, the scope was withdrawn under direct vision. The wound was then carefully irrigated and closed with 3-0 and 4-0 Vicryl suture. The skin was reapproximated in a subcuticular manner. Sterile dressing was applied. There are equal breath sounds bilaterally. Given his rather critical nature and advanced lung disease, we have elected to maintain intubation and mechanical ventilation through the night. This is been previously discussed with Mr. Mcdaniel and family. He is returned i to the ICU in critical but stable condition.
--- NOTE | 2019-12-20 18:58 | XRR_ITS ---
PROCEDURE INFORMATION: Exam: XR Chest, 1 View Exam date and time: 12/20/2019 7:00 PM Age: 59 years old Clinical indication: Screening exam; Other screening; Patient HX: Post op bronch; Additional info: Post bronk TECHNIQUE: Imaging protocol: XR of the chest Views: 1 view. COMPARISON: CR XR chest 1V portable [id number] 12/20/2019 2:52 PM FINDINGS: Tubes, catheters and devices: Right arm PICC in place. ET tube tip lies several cm above the debbie. Lungs: Large lung volumes. 1.8 cm nodule superior aspect of left upper lobe, unchanged. Patchy infiltrate lateral aspect of left lung, unchanged. Pleural space: Unremarkable. No pleural effusion. No pneumothorax. Heart/Mediastinum: Unremarkable. No cardiomegaly. Bones/joints: Unremarkable. XR/XR chest 1V portable [id number] IMPRESSION: Stable left lung nodule and peripheral infiltrate.
--- NOTE | 2019-12-20 19:00 | PC.NURSE ---
rcvd pt from or at this time. pt intubated size 8 secured 25@ lip . soft wrist restraints in place for pt safety. rt at bedside. cmv mode. assessment per flowsheet [email or web address].
[2019-12-20 19:36] LABS: Basophils % 0.1 %; Hematocrit 29.8 % (42.0-52.0); Hemoglobin 9.7 g/dL (11.7-16.6); Lymphocytes # 0.5 10^3/uL (0.8-4.8); Lymphocytes % 3.7 %; Mean Corpuscular HGB Conc 32.6 g/dL (30.0-36.0); Mean Corpuscular Hemoglobin 30.1 pg (28.0-34.0); Mean Corpuscular Volume 92.5 fL (80-94); Mean Platelet Volume 9.3 fL (7.4-10.4); Monocytes # 1.4 10^3/uL (0.2-0.9); Monocytes % 10.1 %; Neutrophils # 11.8 10^3/uL (1.8-7.7); Neutrophils % 85.6 %; Nucleated Red Blood Cells % 0.1 %; Platelet Count 392 10^3/cmm (130-400); Red Blood Count 3.22 10^6/uL (4.1-5.3); Red Cell Distribution Width 14.9 % (12.1-15.1); White Blood Count 13.8 10^3/uL (4.0-10.0)
--- NOTE | 2019-12-20 19:38 | P.PN_ITS ---
Subjective Subjective: Interval history: He is having chronic pain in multiple places, generally in limbs, joints, and upper torso. Breathing feels comfortable with nasal cannula. At home chronically on 3 L oxygen. Vitals/I&O/Wt Last Vital Signs Temp 97.5 F L 12/20/19 15:14 Pulse 85 12/20/19 19:00 Resp 18 12/20/19 19:00 BP 145/94 12/20/19 19:00 Pulse Ox 100 12/20/19 19:00 12/20/19 12/20/19 12/20/19 06:59 14:59 22:59 Intake Total 1280 / 1530 942.5 / 942.5 400 / 1342.5 Output Total 1100 / 1100 1000 / 1000 Balance 180 / 430 942.5 / 942.5 -600 / 342.5 Weight last 48 hrs Weight 81.193 kg Physical Exam Const: COMMON NORMALS: no apparent distress, oriented x3 and alert; negative for healthy appearing GENERAL APPEARANCE: cooperative NUTRITIONAL APPEARANCE: thin HENMT: COMMON NORMALS: moist oral mucous membranes Neck/C-Spine: COMMON NORMALS: no JVD Resp: COMMON NORMALS: normal respiratory effort AUSCULTATION: wheezes (mild) left lower Cardio: COMMON NORMALS: no JVD, regular rhythm, S1 normal heart sound, S2 normal heart sound and no murmurs RATE: tachycardic RHYTHM: regular rhythm HEART SOUNDS: S1 normal and S2 normal GI: COMMON NORMALS: normal to inspection, nondistended, normoactive bowel sounds, soft to palpation and non-tender PALPATION: Yes soft Extremity: COMMON NORMALS: no joint enlargement and no pedal edema Neuro: COMMON NORMALS: oriented x3 SENSORIUM/ORIENTATION: Yes alert OTHER: No obvious facial droop Skin: COMMON NORMALS: no rashes or lesions noted NARRATIVE SKIN EXAM: Tattoos GENERAL SKIN EXAM: no rashes or lesions noted Urinary Catheter Management^: Marmolejo: Cath Placed During This Visit: yes Urethral Indwelling: Yes Reason for Continuing Indwelling Catheter: Accurate Measurement of Urinary Output in Critically Ill Patients Urinary Catheter Date of Insertion: 12/19/19 Urinary Catheter Time of Insertion: 17:30 Data : 12/20/19 19:27 12/20/19 04:35 Micro: Microbiology 12/19/19 14:12 Blood Culture - Preliminary Blood NEGATIVE TO DATE 12/19/19 14:17 Blood Culture - Preliminary Blood NEGATIVE TO DATE A&P Assessment and plan (1) Pneumonia: Complicated pneumonia of left upper lobe with suspected postobstructive component secondary to left upper lobe malignancy. Continue Levaquin and vancom ycin at this time. Oxygenation has been stable, he has been at 3 L nasal cannula which appears to be his chronic oxygen rate at home. Last night had an episode of obtundation, subsequently with hypotension, respiratory difficulty, with difficulty obtaining pulse oximetry after receiving morphine and Ativan in ER. Received naloxone with improvement in symptoms and overnight was monitored in ICU. Today underwent bronchoscopic evaluation with biopsy, culture of secretions. Greatly appreciate the assistance of our thoracic surgery colleague. For now remains intubated following bronchoscopy and mediastinoscopy with biopsies. We will add sedation, continue PPI. Status: Acute Code(s): J18.9 - Pneumonia, unspecified organism (2) Lung cancer: Progression of left upper lobe nodules first seen in April with appearance of malignancy. Today underwent bronchoscopic evaluation with biopsy and mediastinoscopy for tissue diagnosis and staging of malignancy. Greatly appreciate the assistance of our thoracic surgery colleague. Status: Acute Code(s): C34.90 - Malignant neoplasm of unspecified part of unspecified bronchus or lung Additional A&P Information COPD: with exacerbation. Chronically on 3 L oxygen nasal cannula at home. At t his time continue steroid, antibiotics, breathing treatments. Follow cultures. Rapid flu was negative. History of smoking Anemia: Normocytic. Suspect secondary to malignancy with anemia of chronic disease. Received. Receive transfusion today with good response. Thrombocytosis: Improved. Suspect possibly secondary to acute phase reaction with progressive malignancy, pneumonia. Isolated alkaline phosphatase elevation: Resolved. GGT normal. Troponin abnormality: Minimal without chest pain. Troponin 21-25.81-22.85. Suspected secondary to nonischemic cardiac injury from mismatch in demand and supply with pneumonia, hypoxia. Metabolic alkalosis: Bicarbonate 39. Suspect compensation secondary to chronic respiratory acidosis. Possible degree of contraction alkalosis on presentation. Attestations Medical Necessity Statement*: Continue admission for assessment management of pneumonia in the setting of lung cancer. COPD exacerbation. Coding Level of Care Code Acute Escape Wheel Tooth Cutter for [facility] Diagnoses Pneumonia J18.9 Lung cancer C34.90
[2019-12-20 19:51] LABS: Vancomycin Trough 14.5 ug/mL (10-15)
[2019-12-20] MEDS: propofol 1,000 MG/100 ML INJ 4.9 MG IV (20:08)
[2019-12-21] VITALS (38 sets, daily range): BP systolic 105–145; BP diastolic 63–88; PULSE 79–112; RESP 14–638; TEMP 36.4; O2SAT 92–100
[2019-12-21] MEDS: vancomycin 1,000 MG in sodium chloride 0.9% 250 ML 166 MG IV (01:49)
[2019-12-21] MEDS: propofol 1,000 MG/100 ML INJ 4.9 MG IV (01:51)
[2019-12-21] MEDS: ipratropium-albuterol 3 mL Neb INHALATION ×4 (02:51→20:32)
--- NOTE | 2019-12-21 02:57 | PC.NURSE ---
0200 bath / linen care done at this time. [email or web address] .
[2019-12-21 05:20] LABS: Hematocrit 27.4 % (42.0-52.0); Hemoglobin 9.1 g/dL (11.7-16.6); Lymphocytes # 0.5 10^3/uL (0.8-4.8); Lymphocytes % 3.3 %; Mean Corpuscular HGB Conc 33.2 g/dL (30.0-36.0); Mean Corpuscular Hemoglobin 31.5 pg (28.0-34.0); Mean Corpuscular Volume 94.8 fL (80-94); Mean Platelet Volume 9.6 fL (7.4-10.4); Monocytes # 1.3 10^3/uL (0.2-0.9); Monocytes % 9.4 %; Neutrophils # 12.3 10^3/uL (1.8-7.7); Neutrophils % 86.9 %; Nucleated Red Blood Cells % 0.1 %; Platelet Count 378 10^3/cmm (130-400); Red Blood Count 2.89 10^6/uL (4.1-5.3); Red Cell Distribution Width 15.6 % (12.1-15.1); White Blood Count 14.1 10^3/uL (4.0-10.0)
[2019-12-21 05:42] LABS: Alanine Aminotransferase 10 U/L (0-41); Albumin Level 2.8 g/dL (3.5-5.2); Alkaline Phosphatase 96 IU/L (40-130); Anion Gap 10.5 (5-19); Aspartate Amino Transferase 18 U/L (0-40); Blood Urea Nitrogen 13 mg/dL (8-23); Calcium 8.7 mg/dL (8.5-10.5); Carbon Dioxide 37 mmol/L (22-29); Chloride 92 mmol/L (98-107); Globulin 2.9 g/dL (1.3-4.6); Glomerular Filtration Rate 169.6 mL/min (90-130); Glucose 258 mg/dL (65-115); Potassium 3.5 mmol/L (3.5-5.1); Sodium 136 mmol/L (136-145); Total Bilirubin 0.3 mg/dL (0.15-1.2); Total Protein 5.7 g/dL (6.6-8.7)
--- NOTE | 2019-12-21 06:00 | XR_ITS ---
WS: [id number] PORTABLE CHEST HISTORY: Hypoxia COMPARISON: 12/20/2019 Endotracheal tube ends at the level of the clavicular heads. Right-sided PICC line with tip in the mi d to distal SVC. Again noted is a wedge-shaped area of opacification in the LEFT upper lobe which has been previously described as bronchogenic carcinoma. No progression of disease compared to the most recent exams. RIG HT lung is clear. No pleural effusion or pneumothorax. Cardiac size: Normal. Mediastinum/Aorta: Normal mediastinum. No osseous abnormality seen. XR/XR chest 1V portable [id number] IMPRESSION: 1. Endotracheal tube remains in good position. 2. No change in the LEFT upper lobe neoplasm which has been previously describ ed. 3. No pneumonia.
[2019-12-21 06:06] LABS: ABG PCO2 60.2 mmHg (35-45); ABG PH Result 7.43 (7.35-7.45); Arterial Blood Gas Hematocrit 30.7 % (42-52); Blood Gas Sample Site Brachial, left; Blood Gas Sample Type Arterial; Blood Gas Tidal Volume 0.5; HCO3 ABG 40.3 mmol/L (22-26); Oxygen Device VENT; PO2 ABG 88.6 mmHg (80.0-100.0)
[2019-12-21] MEDS: D5-NS 0.45% + KCL 20 mEq 20 MEQ/1,000 ML BAG 150 MEQ IV (06:10)
[2019-12-21] MEDS: propofol 1,000 MG/100 ML INJ 14.6 MG IV (06:10)
[2019-12-21] MEDS: budesonide 0.5 mg/2 mL Neb INHALATION ×2 (08:34→20:32)
--- NOTE | 2019-12-21 09:14 | P.PN_ITS ---
Subjective Subjective: Interval history: underwent bronchoscopy with mediastinoscopy yeseterday. Possible endobronchial mass toward the apical posterior segment of the left upper lobe. Endobronchial biopsies taken in addition to mediastinal lymph node biopsies. This morning intubated and sedated. ABG this am ph 7.43, pc02 60, p02 88, hc03 40. WBC 14 <--13.8. Stable renal and liver fxn. Medications: Reviewed: Yes Vitals/I&O/Wt Last Vital Signs Temp 97.3 F L 12/20/19 23:58 Pulse 93 12/21/19 07:55 Resp 14 12/21/19 08:32 BP 110/74 12/21/19 04:00 Pulse Ox 99 12/21/19 07:55 12/20/19 12/21/19 12/21/19 22:59 06:59 14:59 Intake Total 802.5 / 2995.0 1049.164 / 4044.164 17.033 / 17.033 Output Total 1000 / 1000 700 / 1700 Balance -197.5 / 1995.0 349.164 / 2344.164 17.033 / 17.033 Weight last 48 hrs Weight 81.193 kg Physical Exam Narrative: EXAM NARRATIVE: GEN: Awake, alert, intubated, communicating via gestures and head nods CVS: S1S2 N RS: CTA B/L Abd: Soft, nt/nd , bs+ RAILWAY SIGNAL TECHNICIAN: no focal neuro deficits Urinary Catheter Management^: Marmolejo: Cath Placed During This Visit: yes Urethral Indwelling: Yes Reason for Continuing Indwelling Catheter: Accurate Measurement of Urinary Output in Critically Ill Patients Urinary Catheter Date of Insertion: 12/19/19 Urinary Catheter Time of Insertion: 17:30 Data : 12/21/19 05:05 12/21/19 05:05 Micro: Microbiology 12/20/19 17:16 Gram Stain - Final Lung Left Upper Lobe 12/19/19 14:12 Blood Culture - Preliminary Blood NEGATIVE TO DATE 12/19/19 14:17 Blood Culture - Preliminary Blood NEGATIVE TO DATE A&P Assessment and plan (1) Pneumonia: Complicated pneumonia of left upper lobe with suspected postobstructive component secondary to left upper lobe malignancy. D/c levaquin and vancomycin. F/up culture from bronchoscopy and mediastinoscopy specimens Start zosyn Oxygenation has been stable, he has been at 3 L nasal cannula which appears to be his chronic oxygen rate at home. Will try sedation vacation and weaning trial Status: Acute Code(s): J18.9 - Pneumonia, unspecified organism (2) Lung cancer: Progression of left upper lobe nodules first seen in April with appearance of malignancy. s/p bronchoscopic evaluation with biopsy and mediastinoscopy for tissue diagnosis and staging of malignancy. Greatly appreciate the assistance of our thoracic surgery colleague. Status: Acute Code(s): C34.90 - Malignant neoplasm of unspecified part of unspecified bronchus or lung Additional A&P Information COPD: with exacerbation. Chronically on 3 L oxygen nasal cannula at home. Reduce steroids to q12h . Follow cultures. Rapid flu was negative. History of smoking Anemia: Normocytic. Suspect secondary to malignancy with anemia of chronic disease. Received. Receive transfusion today with good response. Thrombocytosis: Improved. Suspect possibly secondary to acute phase reaction with progressive malignancy, pneumonia. Isolated alkaline phosphatase elevation: Resolved. GGT normal. Troponin abnormality: Minimal without chest pain. Troponin 21-25.81-22.85. Susp ected secondary to nonischemic cardiac injury from mismatch in demand and supply with pneumonia, hypoxia. Metabolic alkalosis: Bicarbonate 39. Suspect compensation secondary to chronic respiratory acidosis. Possible degree of contraction alkalosis on presentation. Attestations Medical Necessity Statement*: ongoing w/up for possible lung malignancy Coding Level of Care Code Acute Childcare Center Director for [facility] Diagnoses Pneumonia J18.9 Lung cancer C34.90
--- NOTE | 2019-12-21 09:20 | PC.CHAP ---
Pastoral Care Encounter/Spiritual Assessment Type of Contact [] Declined pharmacy care coordinator visit [] Patient/Family/Request visit [] Outpatient visit [] Follow-up visit [] Physician referral [] Code/Alert [x] Routine visit [] Staff referral [] Actively dying [x] Patient sleeping [] Family support [] [] Out of room [] Palliative care [] [] Receiving care in room [] Pre-surgical visit [] Trauma [] Long length of stay [x] ICU visit [] Other: Relational/Emotional Strength [] Patient feels connected with others/family/visitors/staff [] Distress [] Loneliness/isolation [] Abandonment Spirituality of Patient [] Person of Sherlyn [] Attends Alevism of their Sherlyn [] Believes in Prayer [] Reads Bible or Zoroastrian materials [] There are Spiritual issues to be addressed [employer] Wireman Interventions [] Prayer [] Active listening [] Non-anxious presence [] Spiritual/emotional support [] Crisis/trauma care [] Spiritual counseling [] Bereavement support [] Provided bereavement packet [] Provided Bible/devotional materials [] Provided toy/stuffed animal, coloring book to patient or family member [] Provided Communion [] Anointing/[place] [] Salvation [x] Completed spiritual assessment [] Other: Impact on Illness or Injury [] Angry [] Fearful [] Anxious [] Often cries [] Exhaustion [] Unable to work [] Unable to attend yazidism [] Unable to walk/stand [] Unable to read [] Unable to drive [] Unable to eat/drink [] Unable to sleep [] Unable to be with family [] Patient intubated [] Other: Summary [place] visited with patient yesterday. Today patient seems to be breathing easier and resting. Time spent with patient
[2019-12-21] MEDS: atorvastatin 40 mg Tablet 20 MG PO (09:55)
[2019-12-21] MEDS: guaiFENesin 600 mg Tablet 1200 MG PO ×2 (09:56→17:33)
[2019-12-21] MEDS: pantoprazole DR 40 mg Tablet PO (10:04)
[2019-12-21] MEDS: tamsulosin 0.4 mg Capsule PO (10:04)
[2019-12-21] MEDS: montelukast sodium 10 mg Tablet PO (10:04)
[2019-12-21] MEDS: roflumilast 500 mcg Tablet PO (10:05)
[2019-12-21] MEDS: nicotine 21 mg Patch 1 PATCH TRANSDERMA (10:05)
[2019-12-21] MEDS: piperacillin-tazobactam 3.375 GM in sodium chloride 0.9% (plus) 50 ML IV ×2 (10:08→17:36)
--- NOTE | 2019-12-21 11:08 | PC.RESP ---
extubated pt extubated and placed on 3lpm nc tolerated well
[2019-12-21] MEDS: morphine 4 mg/mL SDV 1 mL 2 MG IVP ×4 (11:11→23:12)
--- NOTE | 2019-12-21 11:45 | PC.RESP ---
Patient given Pulmonary Rehab and Smoking Cessation information.
--- NOTE | 2019-12-21 12:33 | PC.NURSE ---
resp are labored, commented why dont they just let me go
--- NOTE | 2019-12-21 13:48 | PC.NURSE ---
requesting to be put out.d ifficulty breathing. states i thought they were gonna put me out. explained that the sedation was for intubation and we only had m.s. now, which i had already given him. o2 sat down to 85%. on 5l. bipap back on.
[2019-12-21] MEDS: D5-NS 0.45% + KCL 20 mEq 20 MEQ/1,000 ML BAG 75 MEQ IV (17:28)
[2019-12-21] MEDS: levofloxacin-dextrose 5 % 750 MG/150 ML PREMIX 150 MG IV (17:34)
--- NOTE | 2019-12-21 18:14 | PC.NURSE ---
has been on and off bipap since extubation. req. pain meds
--- NOTE | 2019-12-21 21:31 | PC.NURSE ---
patient wore bipap for approximately 2 hours, now insisted on using NC with 02@6L/min. MMtigre RN
--- NOTE | 2019-12-21 22:21 | PC.NURSE ---
patient o2 sat down to 74% on O2 at 6L/NC , bipap placed on patient and SPO2 increased to 95%. MMorgan RN
[2019-12-22] VITALS (33 sets, daily range): BP systolic 114–127; BP diastolic 62–78; PULSE 77–118; RESP 15–30; TEMP 35.9–36.6; O2SAT 92–100
[2019-12-22] MEDS: piperacillin-tazobactam 3.375 GM in sodium chloride 0.9% (plus) 50 ML IV ×2 (02:14→11:26)
[2019-12-22] MEDS: ipratropium-albuterol 3 mL Neb INHALATION ×4 (02:15→20:14)
[2019-12-22 05:03] LABS: Alanine Aminotransferase 10 U/L (0-41); Albumin Level 2.7 g/dL (3.5-5.2); Alkaline Phosphatase 91 IU/L (40-130); Anion Gap 9.9 (5-19); Aspartate Amino Transferase 19 U/L (0-40); Blood Urea Nitrogen 8 mg/dL (8-23); Calcium 8.2 mg/dL (8.5-10.5); Carbon Dioxide 39 mmol/L (22-29); Chloride 93 mmol/L (98-107); Globulin 2.8 g/dL (1.3-4.6); Glomerular Filtration Rate 219.4 mL/min (90-130); Glucose 439 mg/dL (65-115); Potassium 4.9 mmol/L (3.5-5.1); Sodium 137 mmol/L (136-145); Total Bilirubin 0.2 mg/dL (0.15-1.2); Total Protein 5.5 g/dL (6.6-8.7)
--- NOTE | 2019-12-22 05:18 | PM.EVENT ---
Event Note Event Note: Blood sugar 439 this am. Review of home med list shows he was on metformin at home. He does have diabetes type II. Been on fluids with d5. Receiving solumedrol also. I have stopped the IVFs (BP, Cr, HR okay). Added low dose insulin as insulin naive from what I can tell.
--- NOTE | 2019-12-22 05:35 | PC.NURSE ---
patient wanted bipap off, nasal cannula placed on at this time O2 @ 6L/min. MMorgan RN
[2019-12-22] MEDS: morphine 4 mg/mL SDV 1 mL 2 MG IVP ×10 (05:38→23:48)
[2019-12-22] MEDS: budesonide 0.5 mg/2 mL Neb INHALATION ×2 (08:15→20:14)
[2019-12-22] MEDS: atorvastatin 40 mg Tablet 20 MG PO (08:31)
[2019-12-22] MEDS: montelukast sodium 10 mg Tablet PO (08:32)
[2019-12-22] MEDS: pantoprazole DR 40 mg Tablet PO (08:32)
[2019-12-22] MEDS: nicotine 21 mg Patch 1 PATCH TRANSDERMA (08:32)
[2019-12-22] MEDS: guaiFENesin 600 mg Tablet 1200 MG PO ×2 (08:32→18:39)
[2019-12-22] MEDS: tamsulosin 0.4 mg Capsule PO (08:32)
[2019-12-22] MEDS: roflumilast 500 mcg Tablet PO (08:32)
--- NOTE | 2019-12-22 09:26 | PM.PN ---
Subjective Subjective: Interval history: Overnight events noted. Blood sugar 409. D5 infusion stopped. Insulin added. Patient continues to have intermittent respiratory distress when he becomes very anxious tachypneic and short of breath. Remains on BiPAP this morning. Requesting morphine more frequently for air hunger. He is afebrile. Blood pressure is stable. Tachypneic with respiratory rate up to 26. MRSA DNA negative from the nares. Bronchial large culture thus far with no white blood cells and no organisms. Pathology remains pending. Medications: Reviewed: Yes Vitals/I&O/Wt Last Vital Signs Temp 97.6 F 12/22/19 04:00 Pulse 91 12/22/19 08:15 Resp 26 H 12/22/19 08:32 BP 120/69 12/22/19 04:00 Pulse Ox 98 12/22/19 08:32 12/21/19 12/22/19 12/22/19 22:59 06:59 14:59 Intake Total 317.65 / 8545.696 6316.54 / 2736.571 Output Total 1025 / 1025 700 / 1725 Balance -707.35 / 409.031 602.54 / 1011.571 Physical Exam Narrative: EXAM NARRATIVE: GEN: Awake, alert, oriented, no acute distress while lying in bed, chronically ill appearing. HEENT: Currently on NC, no distress CVS: S1S2 N RS: CTA B/L Abd: Soft, nt/nd , bs+ INSTRUCTOR APPAREL MANUFACTURE: no focal neuro deficits Urinary Catheter Management^: Marmolejo: Cath Placed During This Visit: yes Urethral Indwelling: Yes Reason for Continuing Indwelling Catheter: Accurate Measurement of Urinary Output in Critically Ill Patients Urinary Catheter Date of Insertion: 12/19/19 Urinary Catheter Time of Insertion: 17:30 Data : 12/21/19 05:05 12/22/19 04:05 Micro: Microbiology 12/21/19 12:40 MRSA Culture - Final Nose A&P Assessment and plan (1) Pneumonia: Left upper lobe mass which appears most likely to be malignant. He is status post bronchoscopy and mediastinoscopy. Biopsy and cytology remains pending at this time. Thus far bronchial of alveolar lavage cultures are negative. Component of postobstructive pneumonia cannot be excluded at this time therefore patient remains on Zosyn. D/c levaquin and vancomycin. F/up culture from bronchoscopy and mediastinoscopy specimens Patient is noted to be becoming more tachypneic since extubation and remains on BiPAP. FiO2 requirement is at 30% currently. It has been discussed with him that he may tire out while being on BiPAP and this appears likely to be multifactorial related to newly diagnosed mass possible malignancy and his advanced COPD. He adamantly declines being intubated again in case of worsening respiratory status. Status: Acute Code(s): J18.9 - Pneumonia, unspecified organism (2) Lung cancer: Progression of left upper lobe nodules first seen in April with appearance of malignancy. s/p bronchoscopic evaluation with biopsy and mediastinoscopy for tissue diagnosis and staging of malignancy. Greatly appreciate the assistance of our thoracic surgery colleague. Status: Acute Code(s): C34.90 - Malignant neoplasm of unspecified part of unspecified bronchus or lung Additional A&P Information COPD: with exacerbation. Chronically on 3 L oxygen nasal cannula at home. Continue steroids to q12h . Follow cultures. Rapid flu was negative. History of smoking Anemia: Normocytic. Suspect secondary to malignancy with anemia of chronic disease. Thrombocytosis: Improved. Suspect possibly secondary to acute phase reaction with progressive malignancy, pneumonia. Isolated alkaline phosphatase elevation: Resolved. GGT normal. Troponin abnormality: Minimal without chest pain. Troponin 21-25.81-22.85. Suspected secondary to nonischemic cardiac injury from mismatch in demand and supply with pneumonia, hypoxia. Metabolic alkalosis: Bicarbonate 39. Suspect compensation secondary to chronic respiratory acidosis. Possible degree of contraction alkalosis on presentation. Family meeting later today to discuss goals of care. Attestations Medical Necessity Statement*: awaiting optimization of respiratory status, GOC discussion with family today Time Spent in Patient Care: 16 - 35 minutes Coding Level of Care Code Acute Health Worker for [facility] Fwd Diagnoses Pneumonia J18.9 Lung cancer C34.90
[2019-12-22 11:51] LABS: Glucose Point of Care 124 mg/dL (70-110)
--- NOTE | 2019-12-22 14:49 | PC.SOCIAL ---
IMM Not Updated Pg 2 of IMM not given yet. Attempted twice. Patient has been bipap dependent both times and no family at bedside. Nursing staff reports no family has been in yet, but should be here soon.
--- NOTE | 2019-12-22 15:30 | PC.NURSE ---
FAMILY AT BEDSIDE TO SPEAK WITH DR RDZ.
[2019-12-22 16:54] LABS: Glucose Point of Care 205 mg/dL (70-110)
[2019-12-22 16:54] LABS: Glucose Point of Care 146 mg/dL (70-110)
[2019-12-22] MEDS: LORazepam 2 mg/mL INJ 1 mL 0.5 MG IVP ×3 (18:33→23:47)
--- NOTE | 2019-12-22 18:39 | PM.EVENT ---
Event Note Event Note: change in GOC to comfort care. Patient has been noted to be increasingly tachypneic during the day. he is keeping the Bipap on for most day. Brief break in Bipap was given earlier today with placement on NC with desaturation down to 60%. Patient has stressed multiple times today that he wants to be as comfotrable as possible and has requested morphine to help with air hunger. His family is at bedside this evening. Patient and family state that he has previously had multiple discussions regarding DNR/DNI with the family. Patient's mother passed from advanced respiratory disease and had been on mechanical ventilation for a prolonged period with great difficulty. Patient states he wants to avoid similar situation with him and again refuses intubation, even if it means that he may pass from respiratory arrest. They state that they proceeded with w/up for possible malignancy based on family's request, but now seeing that he is extremely uncomfortbale, they wish to honor his wishes for comfort and pain free survival. In keeping with this, all invasive measures have been discontinued. There are more family members coming from [facility] and patient wishes to remain on Bipap until then. Morphine is currently ordered as q1h prn, but may be increased per patient comfort. Ativan added. Bipap per patient tolerance. He wants to use it this evening. Transition to NC to be directed by patient for now while he is able to express his wishes. No further escalation of care including pressors,etc. Transfer out of ICU to quiet room. Further orders per patient's clinical course Event Notes Attestations Time Spent in Patient Care: Greater than 35 minutes (>than 50% of time spent in counselling and/or direct pt care on unit).
--- NOTE | 2019-12-22 18:45 | PC.NURSE ---
FAMILY AT BEDSIDE. PT HAS OPTED TO HAVE COMFORT MEASURES D/T POSSIBLE LUNG CANCER. MEDICATED ORDERED
--- NOTE | 2019-12-22 23:29 | PC.NURSE ---
Brothers arrived from out of town, multiple family members at bedside, has been called by family to give patient last rights and blessings. Patient medicated for pain and anxiety with his requests, effective treatment thus far, continues to use bipap at this time per his request. Brian RN
--- NOTE | 2019-12-22 23:52 | PC.NURSE ---
all family expected to arrive is at bedside, manager special events present with patient also. Patient stated multiple times that he wanted to take the bipap off now. calibration checker present and at bedside to honor patient's wishes. MMorgan RN
[2019-12-23] VITALS (12 sets, daily range): BP systolic 0; BP diastolic 0; PULSE 0–117; RESP 0–32; TEMP -17.7–0; O2SAT 50–91
--- NOTE | 2019-12-23 00:05 | PC.NURSE ---
patient struggling at this time, respirations 32 and grunting with use of accessory muscles, spo2 @ 87% , called and new order received to give Morphine 2mg IVP now x 1. MMorgan RN
[2019-12-23] MEDS: morphine 4 mg/mL SDV 1 mL 2 MG IVP (00:14)
[2019-12-23] MEDS: morphine 4 mg/mL SDV 1 mL IVP ×7 (00:43→04:21)
[2019-12-23] MEDS: LORazepam 2 mg/mL INJ 1 mL IVP ×3 (00:43→03:30)
[2019-12-23] MEDS: ipratropium-albuterol 3 mL Neb INHALATION (03:09)
--- NOTE | 2019-12-23 05:11 | PC.NURSE ---
patient with no respirations, asystole on monitor, no heratrate auscultated, no B/P, family present with vascular surgery physician at this time. MMorgan RN
--- NOTE | 2019-12-23 05:13 | PC.NURSE ---
family requests body be held in [facility] until they have definite arrangements made with a home to transport the body. Family also requesting that they be contacted about what type of cancer he had and the results of the biopsies from 10/20/20. They will contact the hospital as soon as they have arrangements confirmed. Brian RN
--- NOTE | 2019-12-23 08:37 | P.DES_ITS ---
Discharge Providers DDS Date of Admission: 12/19/19 14:20 Date Summary Completed: 12/23/19 Attending Provider at Admission: Vick Owens Time of : 05:02 Attending Provider at Discharge: Elham Gutiérrez MD DS Diagnoses Hospital Diagnoses (1) Pneumonia: (2) Lung cancer: Reason for Visit Reason for Visit: Reason For Visit: SHORTNESS OF BREATH Summary Date and Time of : Date of : 12/23/19 Time of : 05:02 Summary: Summary: Reji Mcdaniel is a 59 year old male with history of COPD on home , left upper lobe pulmonary parenchymal nodule seen in April 2019 presented to emergency department due to shortness of breath and hypoxia. CT of the chest was assessed due to concern for possible PE, without PE noted, but with progressive left upper lobe bronchogenic carcinoma measuring 1.2 x 1.7 cm, with focal soft tissue thickening with left hilar lymphadenopathy, parenchymal consolidation along the left upper lobe at the fissure with concern for possible component of postobstructive pneumonia. Surrounding satellite nodules most consistent with metastatic disease. Additional continuous left upper lobe spiculated nodule measuring 2.1 cm cephalad to left fissure consolidation. Also noted numerous partially visualized metastatic lesions in the liver. Patient had elected not to undergo intubation except periprocedurally for bronchoscopy and mediastinoscopy on 12/20. In keeping with his wishes he was extubated to Bipap on 12/21 with the understanding that extubation will put him at a higher risk of respiratory failure and . On 12/22 was noted to be increasingly tachypneic during the day. he is keeping the Bipap on for most day. Brief break in Bipap was given with placement on NC with desaturation down to 60%. Patient had stressed multiple times that he wants to be as comfotrable as possible and has requested morphine to help with air hunger. After his family came to bedside in the evening, he was made comfort care and on 12/23 at 5:02 am per nursing documentation. 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
== END 2019-12-23 05:09 | disposition expired | DRG 166 ==
LOC: ER 11:06 → MEDSURG 15:28 → ICU 17:37
PROVIDERS: Thoracic Surgery (Cardiothoracic Vascular Surgery); Admitting Provider Internal Medicine; Emergency Provider Family Medicine; Family Provider Nurse Practitioner Family; Visit Provider Student in an Organized Health Care Education/Training Program
PROC: 0BJ08ZZ Inspection of Tracheobronchial Tree, Via Natural or Artificial Opening Endoscopic (ICD-10-PCS; CPT 31622; principal; 2019-12-20 16:00)
PROC: 0WJC4ZZ Inspection of Mediastinum, Percutaneous Endoscopic Approach (ICD-10-PCS; CPT 39401; 2019-12-20 16:00)
DX: C34.12 Malignant neoplasm of upper lobe, left bronchus or lung (principal); J18.9 Pneumonia, unspecified organism; E87.1 Hypo-osmolality and hyponatremia; C77.1 Secondary and unspecified malignant neoplasm of intrathoracic lymph nodes; E87.2 Acidosis; C78.7 Secondary malignant neoplasm of liver and intrahepatic bile duct; Z51.5 Encounter for palliative care; Z66 Do not resuscitate; J44.9 Chronic obstructive pulmonary disease, unspecified; F17.210 Nicotine dependence, cigarettes, uncomplicated; Z99.81 Dependence on supplemental oxygen
CPT/HCPCS: 12345; 36415; 36416; 36430; 36592; 51702; 71045; 71275; 80053; 80202; 82803; 82962; 82977; 83735; 84484; 85025; 85610; 85730; 86850; 86900; 87040; 87070; 87205; 87641; 87804; 88305; 93005; 94002; 94003; 94640; 94660; 94799; 96372; 96375; 99283; C1751; J0171; J0330; J0690; J1650; J1815; J1956; J2060; J2250; J2270; J2370; J2543; J2704; J2930; J3010; J3370; J3475; J3490; J7030; J7040; J7050; J7626; P9016; Q9967